=== PATIENT | female | born 1955 | race Caucasian/White ===

== ENCOUNTER 2017-01-07 01:41 | Emergency (ER) | payer OTHER ==
[~2017-01-07] VITALS: Ht 157.5 cm; Wt 72.6 kg
[~2017-01-07 01:41] MED LIST: ACCUNEB SO1.25 MG/1; ADDERALL 30 MG30 MG PO; BACTRIM DS TAB1 EACH PO; BENTYL 20 MG TA20 M1 PO; CITRATE OF MAG296 ML PO; COLACE100 MG PO; IBUPROFEN 800800 M1 PO; KEFLEX500 MG PO; LEXAPRO 10 MG T10 M1; MACROBID 100 M100 M1 PO; METFORMIN HCL500 MG PO; NORCO 5-325 TA1 EACH PO; ONDANSETRON HCL4 M2 PO; PERCOCET 5-3251 EACH PO; TRILEPTAL300 MG PO; WELLBUTRIN XL300 MG PO; XANAX 0.25 MG0.25 MG PO; ZANTAC 150MG T150 M1 PO; ZOCOR20 MG PO
[2017-01-07 01:47] VITALS: BP 144/80
[2017-01-07] MEDS ORDERED: PREDNISONE 10 M10 M1 PO (02:19)
== END 2017-01-07 02:25 | disposition home or self-care (01) ==
LOC: ER 01:41
DX: R21 Rash and other nonspecific skin eruption (principal); F41.0 Panic disorder [episodic paroxysmal anxiety]; F31.9 Bipolar disorder, unspecified; E78.00 Pure hypercholesterolemia, unspecified; F17.210 Nicotine dependence, cigarettes, uncomplicated; F10.99 Alcohol use, unspecified with unspecified alcohol-induced disorder

== ENCOUNTER 2017-01-18 11:06 | Emergency (ER) | payer OTHER ==
[~2017-01-18] VITALS: Ht 157.5 cm; Wt 72.6 kg
[~2017-01-18 11:06] MED LIST changes: +PREDNISONE 10 M10 M1 PO
[2017-01-18] MEDS ORDERED: XANAX1 MG PO (12:23)
[2017-01-18 12:45] VITALS: BP 129/84
== END 2017-01-18 12:46 | disposition home or self-care (01) ==
LOC: ER 11:06
DX: F41.9 Anxiety disorder, unspecified (principal); F31.9 Bipolar disorder, unspecified; E78.00 Pure hypercholesterolemia, unspecified; F90.9 Attention-deficit hyperactivity disorder, unspecified type; F17.210 Nicotine dependence, cigarettes, uncomplicated; F10.99 Alcohol use, unspecified with unspecified alcohol-induced disorder; F15.10 Other stimulant abuse, uncomplicated

== ENCOUNTER 2019-07-05 13:03 | Emergency (ER) | payer OTHER ==
[~2019-07-05] VITALS: Ht 165.1 cm; Wt 77.1 kg
[~2019-07-05 13:03] MED LIST changes: +XANAX1 MG PO
[2019-07-05 13:04] VITALS: BP 152/77
[2019-07-05] MEDS ORDERED: NEOMYCIN-POLY-7.5 ML OPHTHALMIC (14:59)
[2019-07-05] MEDS ORDERED: ULTRAM 50MG TAB50 MG PO (14:59)
== END 2019-07-05 16:11 | disposition home or self-care (01) ==
LOC: ER 13:03
DX: S05.01XA Injury of conjunctiva and corneal abrasion without foreign body, right eye, initial encounter (principal); H10.211 Acute toxic conjunctivitis, right eye; M71.9 Bursopathy, unspecified; E11.9 Type 2 diabetes mellitus without complications; E78.5 Hyperlipidemia, unspecified; E78.00 Pure hypercholesterolemia, unspecified; F31.9 Bipolar disorder, unspecified; F90.9 Attention-deficit hyperactivity disorder, unspecified type; F17.210 Nicotine dependence, cigarettes, uncomplicated; X58.XXXA Exposure to other specified factors, initial encounter; Y93.89 Activity, other specified; Y92.89 Other specified places as the place of occurrence of the external cause; Y99.8 Other external cause status

== ENCOUNTER 2020-08-19 22:13 | Inpatient (IN) | payer OTHER ==
[~2020-08-19] VITALS: Ht 157.5 cm; Wt 79.4 kg
[~2020-08-19 22:13] MED LIST changes: +NEOMYCIN-POLY-7.5 ML OPHTHALMIC; +ULTRAM 50MG TAB50 MG PO
[2020-08-19 22:14] VITALS: BP 146/72
[2020-08-20 03:19] LABS: BE(vivo) 1.4 mmol/L (-2 to +3); HCO3 27.2 mmol/L (22.0-26.0); PCO2 47.4 mmHg (35.0-45.0); PO2 64.6 mmHg (80.0-100.0); pH 7.377 (7.360-7.450); sO2 92.1 % (92.0-98.0)
[2020-08-20 03:52] LABS: ABSOLUTE NEUTROPHILS 4.4 thou/uL (1.4-8.2); BASOPHILS 1.2 % (0.0-2.0); EOSINOPHILS 2.6 % (0.0-3.0); HEMATOCRIT 40.5 % (37.0-47.0); HEMOGLOBIN 13.4 gm/dL (12.0-15.0); LYMPHOCYTES 33.3 % (24.0-44.0); MCH 31.2 pg (26.0-34.0); MCHC 33.1 g/dL (28.0-37.0); MCV 94.4 fL (80.0-100.0); PLATELET COUNT 248 thou/uL (150-400); POLYS 57.9 % (36.0-66.0); RBC 4.29 mil/uL (4.20-5.00); WBC 7.6 thou/uL (4.0-11.0)
[2020-08-20 04:08] LABS: CALCIUM 8.9 mg/dL (8.5-10.1); CREATININE 0.9 mg/dL (0.6-1.0); POTASSIUM 4.3 mmol/L (3.5-5.1)
[2020-08-20 04:14] LABS: ALBUMIN 3.5 g/dL (3.4-5.0); TOTAL BILIRUBIN 0.4 mg/dL (0.2-1.0); TOTAL PROTEIN 7.2 g/dL (6.4-8.2)
[2020-08-20 04:23] LABS: URINE BILIRUBIN NEGATIVE (Negative); URINE BLOOD NEGATIVE (Negative); URINE CLARITY CLEAR; URINE COLOR YELLOW; URINE GLUCOSE-RANDOM* NEGATIVE (Negative); URINE KETONES NEGATIVE (Negative); URINE LEUKOCYTES-REFLEX NEGATIVE (Negative); URINE NITRITE-REFLEX NEGATIVE (Negative); URINE PROTEIN (DIPSTICK) NEGATIVE (Negative); URINE SPECIFIC GRAVITY 1.025 (1.005-1.035); URINE UROBILINOGEN 0.2 E.U./dl (0.2-1.0)
[2020-08-20 04:32] LABS: AMP/METHAMP POSITIVE (Negative); BARBITURATES Negative (Negative); BENZODIAZEPINES Negative (Negative); COCAINE Negative (Negative); METHADONE Negative (Negative); OPIATES Negative (Negative); PCP Negative (Negative)
[2020-08-20 13:21] VITALS: BP 143/80
[2020-08-20 13:44] VITALS: BP 128/64
--- NOTE | 2020-08-20 15:50 | NUR ---
RECEIVED PT FROM THE ICU; PT IS AXOX4, EXTREMELY ANXIOUS. CONTINUES TO MENTION HER "PANIC/ANXIETY DISORDER" AND THAT SHE TAKES NUMEROUS RX TO CONTROL IT. PT VSS, AFEBRILE, SR ON MONITOR. RT CONSULTED FOR BREATHING TREATMENT. PT IS ON 4LNC, O2 SAT 93%. LOW FALL PRECAUTIONS IN PLACE. PT PLACED NEAR RN STATION FOR OBSERVATION AND FREQUENT ROUNDING.
--- NOTE | 2020-08-20 17:31 | EKG ---
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1955 Requested By: Matthew Hernandez Order Number: [id number] MD: Tristin Bermudez Measurements Intervals [place] Rate: 83 P: 37 CO: 176 QRS: 29 QRSD: 196 T: -13 QT: 388 QTc: 456 Interpretive Statements Sinus rhythm No significant abnormality Compared to ECG 04/15/2015 16:34:30 No significant change was found Electronically Signed On 08-20-2020 17:30:58 CDT by Tristin Bermudez [email or web address] <ELECTRONICALLY SIGNED> By: Tristin Bermudez MD, [facility] 08/20/20 1730 D: 04/2352 52 Tristin Bermudez MD, FACC /EPI
--- NOTE | 2020-08-20 17:31 | EKG ---
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1955 Requested By: Matthew Hernandez Order Number: [id number] MD: Tristin Bermudez Measurements Intervals [place] Rate: 84 P: 58 SD: 174 QRS: -7 QRSD: 95 T: -15 QT: 403 QTc: 477 Interpretive Statements Sinus rhythm Nonspecific T wave abnormality Baseline wander in lead(s) II,III,aVR,aVL,aVF Compared to ECG 04/15/2015 16:34:30 No significant change was found Electronically Signed On 08-20-2020 17:31:14 CDT by Tristin Bermudez [email or web address] <ELECTRONICALLY SIGNED> By: Tristin Bermudez MD, [facility] 08/20/20 1731 [id number] Tristin Bermudez MD, [facility] /EPI
[2020-08-20 19:28] VITALS: BP 158/89
[2020-08-20 23:50] VITALS: BP 136/65
[2020-08-21 03:26] VITALS: BP 136/72
[2020-08-21 05:15] LABS: ABSOLUTE NEUTROPHILS 11.2 thou/uL (1.4-8.2); HEMATOCRIT 42.5 % (37.0-47.0); HEMOGLOBIN 13.9 gm/dL (12.0-15.0); LYMPHOCYTES 7.7 % (24.0-44.0); MCHC 32.8 g/dL (28.0-37.0); MCV 94.6 fL (80.0-100.0); MONOCYTES 1.8 % (1.0-8.0); PLATELET COUNT 270 thou/uL (150-400); POLYS 90.5 % (36.0-66.0); RDW 13.2 % (10.5-14.5); WBC 12.3 thou/uL (4.0-11.0)
[2020-08-21 06:00] LABS: CALCIUM 9.8 mg/dL (8.5-10.1); CREATININE 0.9 mg/dL (0.6-1.0); MAGNESIUM 2.2 mg/dL (1.8-2.4); POTASSIUM 4.3 mmol/L (3.5-5.1)
--- NOTE | 2020-08-21 06:54 | NUR ---
PATIENT CARES WERE ASSUMED AT SHIFT CHANGE. PATIENT WAS ASSESSED AND MEDS WERE PASSED. PATIENT HAD SOME ISSUE WITH ANXIETY AND MEDS WERE GIVEN. PATIENT BREATHING IS GOOD WHILE AWAKE,HOWEVER WHEN SHE FALLS ASLEEP SATS DROP INTO THE 80'S. REQUESTED A BUBBLER TO HELP WITH HER DRINESS. ROUNDING WAS DONE. THE BED IS IN A LOW AND LOCKED POSITION. THE BED ALARM IS ON.
[2020-08-21 07:39] VITALS: BP 170/89
--- NOTE | 2020-08-21 10:09 | NUR ---
PT IS AXOX4, LETHARGIC AND SOMNOLENT. DENIES PAIN, VSS, AFERBILE, SR ON MONITOR. PT IS AGITATED THIS AM, AND WANTS TO GO HOME. PT AGREES TO AMA. CHARGE NURSE NOTIFIED, OPTICAL INSTRUMENT SPECIALIST NOTIFIED, DR MILLARD AND DR VALDIVIA CONSULTED. PT LEFT AMA AT 0930.
== END 2020-08-21 10:11 | disposition left against medical advice (07) | DRG 193 ==
LOC: ER 22:13 → EROBS 08-20 04:46 → 2N 08-20 04:46
PROVIDERS: Emergency Medicine; Nurse Practitioner; ADMIT Internal Medicine; ATTEND Internal Medicine
DX: J18.9 Pneumonia, unspecified organism (principal); J96.01 Acute respiratory failure with hypoxia; J44.1 Chronic obstructive pulmonary disease with (acute) exacerbation; J44.0 Chronic obstructive pulmonary disease with (acute) lower respiratory infection; Z20.822 Contact with and (suspected) exposure to COVID-19; F31.9 Bipolar disorder, unspecified; E78.5 Hyperlipidemia, unspecified; F17.210 Nicotine dependence, cigarettes, uncomplicated; F41.9 Anxiety disorder, unspecified; G47.33 Obstructive sleep apnea (adult) (pediatric); Z53.29 Procedure and treatment not carried out because of patient's decision for other reasons; F41.0 Panic disorder [episodic paroxysmal anxiety]; F90.9 Attention-deficit hyperactivity disorder, unspecified type; Z71.6 Tobacco abuse counseling; Z86.19 Personal history of other infectious and parasitic diseases
CPT/HCPCS: 10081